=== PATIENT | female | born 1995 | race Caucasian/White ===

== ENCOUNTER 2021-01-05 06:03 | Emergency (ER) | payer OTHER ==
[~2021-01-05] VITALS: Ht 170.2 cm; Wt 109.1 kg
[2021-01-05 08:12] LABS: BASO % 0.5 % (0.0-1.0); EOS # 0.1 10^3/uL (0.0-0.5); EOS % 0.6 % (0.0-3.0); HEMATOCRIT 43.8 % (36.0-47.0); HEMOGLOBIN 13.9 g/dl (12.0-15.5); LYMPH % 22.6 % (24.0-44.0); MEAN CORPUSCULAR HEMOGLOBIN 27.9 pg (27.0-33.0); MEAN CORPUSCULAR HGB CONC 31.7 g/dl (32.0-36.5); MEAN CORPUSCULAR VOLUME 87.8 fl (80.0-96.0); MONO # 0.6 10^3/uL (0.0-0.8); MONO % 7.3 % (2.0-8.0); NEUTROPHILS % 68.8 % (36.0-66.0); PLATELET COUNT, AUTOMATED 273 10^3/uL (150-450); RED BLOOD COUNT 4.99 10^6/uL (4.00-5.40); WHITE BLOOD COUNT 8.6 10^3/uL (4.0-10.0)
[2021-01-05 08:36] LABS: BLOOD UREA NITROGEN 7 MG/DL (7-18); CALCIUM LEVEL 8.9 MG/DL (8.5-10.1); CARBON DIOXIDE LEVEL 27 MEQ/L (21-32); CHLORIDE LEVEL 108 MEQ/L (98-107); CREATININE FOR GFR 0.61 MG/DL (0.55-1.30); GLOMERULAR FILTRATION RATE > 60.0 (>60); GLUCOSE, FASTING 98 MG/DL (70-100); POTASSIUM SERUM 4.2 MEQ/L (3.5-5.1); SODIUM LEVEL 141 MEQ/L (136-145)
--- NOTE | 2021-01-05 08:51 | REP ---
INDICATION: right lower abd pain r/o cyst. COMPARISON: None. TECHNIQUE: Transabdominal and transvaginal scanning were performed. FINDINGS: Uterine dimensions are normal at 7.8 x 4.6 x 4.9 cm. Endometrial echo is 1.1 cm thick and centrally placed. No free fluid is seen in the cul-de-sac. Visualized bladder tamayo are smooth. Uterus is retroverted retroflexed. The right ovary has dimensions of 3.2 x 2.6 x 3.5 cm. It's Doppler flow is normal with a resistive index of 0.60. There is a 1.7 cm hypoechoic follicle cyst in the right ovary. The left ovary dimensions are normal as well at 2.2 x 1.4 x 1.3 cm. It's Doppler flow was normal with resistive index of 0.54. There is minimal fluid in the cul-de-sac consistent with physiologic fluid. IMPRESSION: Normal pelvic sonography. <Electronically signed by Gordon Orozco > 01/05/21 0806
[2021-01-05 09:15] LABS: HCG, SERUM QUANTITATIVE 115 MIU/ML
[2021-01-05 09:42] VITALS: BP 141/82
== END 2021-01-05 09:45 | disposition home or self-care (01) ==
LOC: M ED 06:03
DX: Z32.01 Encounter for pregnancy test, result positive (principal); N83.201 Unspecified ovarian cyst, right side

== ENCOUNTER 2021-09-14 10:22 | Inpatient (IN) | payer OTHER ==
[~2021-09-14] VITALS: Ht 170.2 cm; Wt 111.4 kg
[2021-09-14] VITALS (39 sets, daily range): BP systolic 102–187; BP diastolic 53–117
[2021-09-14] MEDS ORDERED: LR 1,000 ML IV SCH ×2 (13:05→20:25)
[2021-09-14] MEDS ORDERED: OXYTOCIN DRIP 30 UNITS in IV 1 EA IV PRN ×4 (13:05)
[2021-09-14] MEDS ORDERED: OXYTOCIN DRIP 30 UNITS in IV 1 EA IV SCH (13:05)
[2021-09-14 14:28] LABS: HEMATOCRIT 38.9 % (36.0-47.0); HEMOGLOBIN 12.6 g/dl (12.0-15.5); MEAN CORPUSCULAR HGB CONC 32.4 g/dl (32.0-36.5); MEAN CORPUSCULAR VOLUME 86.4 fl (80.0-96.0); PLATELET COUNT, AUTOMATED 252 10^3/uL (150-450); WHITE BLOOD COUNT 11.3 10^3/uL (4.0-10.0)
[2021-09-14] MEDS ORDERED: ePHEDrine SULFATE 25 MG/5 ML(5MG/ML) SYRINGE IV PRN (17:20)
[2021-09-14] MEDS ORDERED: REFRIGERATOR IV KEYS XX PRN (17:20)
[2021-09-14] MEDS ORDERED: diphenhydrAMINE 50MG/ML VIAL (J1200) IV PRN (17:20)
[2021-09-14] MEDS ORDERED: EPIDURAL/PCA KEYS XX PRN (17:20)
[2021-09-14] MEDS ORDERED: EPIDURAL COMMENT XX SCH (17:20)
[2021-09-14] MEDS ORDERED: LACTATED RINGER'S 1000 ML IV PRN (17:20)
[2021-09-14] MEDS ORDERED: FENTANYL/ROPIVACAINE/NACL BAG 100 ML EPIDURAL SCH (17:20)
[2021-09-14] MEDS ORDERED: NALOXONE INJ 0.4MG/1ML VIAL (J2310 PER 1MG) IV PRN (17:20)
[2021-09-14] MEDS ORDERED: ONDANSETRON 4MG/2ML VIAL IV PRN ×2 (17:20→20:25)
[2021-09-14] MEDS ORDERED: FENTANYL 2MCG/ML ROPIVACAINE 0.2% IN 0.9% NACL 100ML IVBAG As Ordered ONE (17:33)
[2021-09-14 20:10] LABS: CORD GAS ABE A -4.1; CORD GAS HCO3 A 22.4 MEQ/L; CORD GAS O2 SAT A 53.3 %; CORD GAS PCO2 A 46.1 mmHg; CORD GAS PH A 7.305 UNITS; CORD GAS PO2 A 23.5 mmHg; CORD GAS SBC A 20.1 MEQ/L; CORD GAS TCO2 A 23.8 MEQ/L
[2021-09-14 20:13] LABS: CORD GAS ABE V -1.1; CORD GAS HCO3 V 24.1 MEQ/L; CORD GAS O2 SAT V 81.2 %; CORD GAS PCO2 V 41.8 mmHg; CORD GAS PH V 7.378 UNITS; CORD GAS SBC V 23.2 MEQ/L; CORD GAS TCO2 V 25.3 MEQ/L
[2021-09-14] MEDS ORDERED: DIBUCAINE 1% OINTMENT 30GM TOP PRN (20:25)
[2021-09-14] MEDS ORDERED: MEASLES,MUMPS,RUBELLA VACCINE INJ (MMR-II) (90707) SC SCH (20:25)
[2021-09-14] MEDS ORDERED: RHOGAM 300 MCG (1500 IU) INJ (J2790) IM SCH (20:25)
[2021-09-14] MEDS ORDERED: PROMETHAZINE 25 MG TAB PO PRN (20:25)
[2021-09-14] MEDS: IBUPROFEN 800 MG TAB PO SCH (23:07)
[2021-09-14] MEDS: DOCUSATE SODIUM 100MG CAPSULE PO SCH (23:07)
[2021-09-14] MEDS: ACETAMINOPHEN 500 MG TAB PO SCH (23:08)
[2021-09-15] MEDS: ACETAMINOPHEN 500 MG TAB PO SCH ×4 (02:49→20:25)
[2021-09-15] MEDS: IBUPROFEN 800 MG TAB PO SCH ×3 (04:25→20:25)
[2021-09-15 06:00] VITALS: BP 157/81
[2021-09-15 07:30] LABS: HEMATOCRIT 35.6 % (36.0-47.0); HEMOGLOBIN 11.5 g/dl (12.0-15.5); MEAN CORPUSCULAR HEMOGLOBIN 27.8 pg (27.0-33.0); MEAN CORPUSCULAR HGB CONC 32.3 g/dl (32.0-36.5); MEAN CORPUSCULAR VOLUME 86.2 fl (80.0-96.0); PLATELET COUNT, AUTOMATED 227 10^3/uL (150-450); RED BLOOD COUNT 4.13 10^6/uL (4.00-5.40); WHITE BLOOD COUNT 12.1 10^3/uL (4.0-10.0)
[2021-09-15] MEDS: PRENATAL VITAMINS CHEWABLE TABLET PO SCH (08:38)
[2021-09-15] MEDS: DOCUSATE SODIUM 100MG CAPSULE PO SCH ×2 (08:38→21:51)
[2021-09-15 10:30] VITALS: BP 138/67
[2021-09-15 17:55] VITALS: BP 132/70
[2021-09-16] MEDS: ACETAMINOPHEN 500 MG TAB PO SCH ×2 (02:29→08:25)
[2021-09-16] MEDS: IBUPROFEN 800 MG TAB PO SCH (04:25)
[2021-09-16 05:12] VITALS: BP 135/62
[2021-09-16] MEDS ORDERED: PRENCHW PO (07:44)
[2021-09-16] MEDS ORDERED: COLA100C5 PO (07:44)
[2021-09-16] MEDS ORDERED: IBUP80TA PO (07:44)
[2021-09-16] MEDS: DOCUSATE SODIUM 100MG CAPSULE PO SCH (08:15)
[2021-09-16] MEDS: PRENATAL VITAMINS CHEWABLE TABLET PO SCH (08:15)
== END 2021-09-16 11:50 | disposition home or self-care (01) | DRG 807 ==
LOC: M LDI 10:22 → M OBS 22:08
PROVIDERS: ADMIT Obstetrics & Gynecology; ATTEND Obstetrics & Gynecology
PROC: 10E0XZZ Delivery of Products of Conception, External Approach (ICD-10-PCS; principal; 2021-09-14)
PROC: 0HQ9XZZ Repair Perineum Skin, External Approach (ICD-10-PCS; 2021-09-14)
PROC: 3E033VJ Introduction of Other Hormone into Peripheral Vein, Percutaneous Approach (ICD-10-PCS; 2021-09-14)
DX: O34.219 Maternal care for unspecified type scar from previous cesarean delivery (principal); Z37.0 Single live birth; Z3A.40 40 weeks gestation of pregnancy; O99.214 Obesity complicating childbirth; E66.9 Obesity, unspecified; O70.0 First degree perineal laceration during delivery